=== PATIENT | male | born 1950 | race Caucasian/White ===

== ENCOUNTER 2019-01-05 15:52 | Outpatient (CLI) | payer MEDICARE, BC | END 2019-01-05 23:59 | disposition home or self-care (01) | LOC: VAS 15:52 | PROVIDERS: ATTEND Radiology Diagnostic Radiology | DX: M79.605 Pain in left leg (principal); Z79.82 Long term (current) use of aspirin; Z86.718 Personal history of other venous thrombosis and embolism | CPT/HCPCS: 93971 ==

== ENCOUNTER 2019-07-26 14:23 | Emergency (ER) | payer MEDICARE, BC ==
[~2019-07-26] VITALS: Ht 188 cm; Wt 80.0 kg
[2019-07-26 14:25] VITALS: BP 162/102
== END 2019-07-26 15:18 | disposition home or self-care (01) ==
LOC: ER 14:24 → MERGE 14:24 → ER 15:18
DX: T83.098A Other mechanical complication of other urinary catheter, initial encounter (principal); Z00.00 Encounter for general adult medical examination without abnormal findings
CPT/HCPCS: 99281

== ENCOUNTER 2019-07-26 22:58 | Emergency (ER) | payer MEDICARE, BC ==
[~2019-07-26] VITALS: Ht 182.9 cm; Wt 77.3 kg
[2019-07-26 23:33] LABS: CLARITY,URINE SLIGHTLY CLOUDY (Clear); COLOR,URINE YELLOW (Yellow); GLUCOSE, URINE NEGATIVE (Neg); KETONES,URINE NEGATIVE (Neg); LEUKOCYTE ESTERASE ,URINE SMALL (Neg); NITRITES, URINE NEGATIVE (Neg); OCCULT BLOOD,URINE LARGE (Neg); PROTEIN,URINE NEGATIVE (Neg); UROBILINOGEN,URINE 0.2 E.U/dL (0.2-1.0)
[2019-07-26 23:38] LABS: UA COLLECTION TYPE FOLEY CATH
[2019-07-26 23:39] LABS: WBC,URINE 0-4 /HPF (0-4)
[2019-07-26 23:40] LABS: RBC,URINE 50-100 /HPF (0-2); SQUAMOUS EPITHELIAL CELL,UR NONE SEEN /LPF (FEW)
[2019-07-26 23:41] LABS: BACTERIA,URINE NONE SEEN /HPF (Neg)
[2019-07-27] VITALS: BP 145/90
== END 2019-07-27 00:03 | disposition home or self-care (01) ==
LOC: ER 22:59
DX: T83.9XXA Unspecified complication of genitourinary prosthetic device, implant and graft, initial encounter (principal); R31.9 Hematuria, unspecified
CPT/HCPCS: 81001; 87088; 99283